=== PATIENT | male | born 1955 | race Caucasian/White ===

== ENCOUNTER → 2024-05-15 16:24 | Outpatient (CLI) | payer MEDICARE, OTHER, SELFPAY ==
[2024-05-17 14:21] LABS: PSA Free % 33.5 % (.); PSA, Total 6.2 ng/mL (0.0-4.0)
== END ==
PROVIDERS: PCP Family Medicine; Referring Provider Urology; Visit Provider Urology
DX: R97.20 Elevated prostate specific antigen [PSA] (principal); R39.89 Other symptoms and signs involving the genitourinary system
CPT/HCPCS: 36415; 84153; 84154

== ENCOUNTER 2024-05-16 15:05 | Emergency (ER) | payer MEDICARE, OTHER, SELFPAY ==
[2024-05-16] VITALS (9 sets, daily range): BP systolic 142–157; BP diastolic 66–78; PULSE 71–92; RESP 12–18; TEMP 35.9; O2SAT 96–98; BMI 27.9
--- NOTE | 2024-05-16 15:25 | EKG_ITS ---
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
--- NOTE | 2024-05-16 15:25 | DI.RAD.S_ITS ---
PROCEDURE: XR CHEST 1V INDICATIONS: chest pain TECHNIQUE: One view of the chest was acquired. COMPARISON: None. FINDINGS: Surgical changes and devices: None. Lungs and pleura: Lungs are clear. No pleural effusions or pneumothorax. Mediastinum: Mediastinal contours appear normal. Heart size is enlarged. Bones and chest wall: No suspicious bony lesions. Overlying soft tissues appear unremarkable. IMPRESSION: No acute pulmonary process. Dictated by: Liliya Ponce M.D. on 05/16/2024 at 16:09 Approved by: Liliya Ponce M.D. on 05/16/2024 at 16:09
[2024-05-16 16:24] LABS: Add Manual Diff / Slide Review NO; Basophils Absolute Auto 0 /uL (0-100); Basophils Percent Auto 0.2 % (0-2); Eosinophils Absolute Auto 100 /uL (0-450); Eosinophils Percent Auto 0.5 % (2-4); Hemoglobin 14.6 g/dL (13.5-17.5); Lymphocytes Absolute Auto 1700 /uL (1100-4500); Lymphocytes Percent Auto 15.7 % (25-40); Mean Corpuscular HGB Conc 33.2 % (30-36); Mean Corpuscular Hemoglobin 27.5 PG (26-34); Mean Corpuscular Volume 82.9 fL (80-100); Monocytes Absolute Auto 600 /uL (0-900); Monocytes Percent Auto 5.4 % (3-14); Neutrophils Absolute Auto 8200 /uL (1500-7000); Neutrophils Percent Auto 78.2 % (50-75); Platelet Count 299 X10^3/uL (150-400); Red Cell Distribution Width 12.5 % (11.6-14.8); White Blood Cell Count 10.5 X10^3/uL (4.5-11.0)
--- NOTE | 2024-05-16 16:25 | PC.NURSE ---
After prostate biopsy patient was being read instructions and passed out, patient doesnt remember the event had no symptoms prior. hx of HTN and DM2, checked blood glucose 130 at time of assessment. patient reports no pain, dizziness, had one episode of emesis in triage and patients reports feeling much better
[2024-05-16 16:31] LABS: INR 1.1 (0.9-1.3)
[2024-05-16 16:33] LABS: PTT Partial Thromboplastin Tim 37 SECONDS (25.1-36.5)
[2024-05-16 16:35] LABS: Alanine Aminotransferase 43 IU/L (<50); Albumin 4.9 g/dL (3.5-5.0); Albumin Globulin Ratio 1.6 (1.0-2.8); Alkaline Phosphatase 43 U/L (38-126); Aspartate Aminotransferase 41 IU/L (17-59); BUN Creatinine Ratio 17.1 (6-22); Bilirubin Total 0.9 mg/dL (0.2-1.3); Blood Urea Nitrogen 20 mg/dL (9-20); Calcium 9.8 mg/dL (8.4-10.2); Carbon Dioxide 26 mmol/L (22-32); Chloride 102 mmol/L (98-107); Creatine Kinase 203 U/L (55-170); Estimated Glomerular Filt Rate > 60 mL/min (>60); Globulin 3.1 g/dL (1.7-4.1); Glucose 134 mg/dL (80-110); HEMOLYSIS 16 (0-50); Lipase 75 U/L (23-300); Potassium 3.7 mmol/L (3.4-5.1); Sodium 140 mmol/L (137-145)
[2024-05-16 16:47] LABS: NT-proBNP (BNP-Adult 18+) < 20 pg/mL (<125); Troponin I < 0.012 ng/mL (0.01-0.034)
--- NOTE | 2024-05-16 18:08 | ED.DIZZY ---
HPI - Dizziness General Chief Complaint: Syncope Stated Complaint: passed out during procedure, sent by urology Time Seen by Provider: 05/16/24 17:23 Source: patient Mode of arrival: Family Vehicle History of Present Illness HPI Narrative: 69-year-old male presents for evaluation of syncopal episode that occurred shortly after prostate biopsy. Patient states that immediately after his procedure he went to sit up and felt very lightheaded and woozy. He states that the next thing he knows he was waking up with the doctor rubbing on his chest. His blood pressures were low in the procedure room and he was transferred to the ED for general evaluation. Shortly after arrival to the emergency department patient vomited a large amount of liquid. Patient states he currently feels back to baseline. He has a longstanding history of passing out after procedures. He states that he had a vagal episode after his colonoscopy 12 years ago. He states that sometimes he will get intermittent abdominal cramps that caused him to feel lightheaded and he has to lay down. While in the emergency department he did have several cups of fluid and ambulated to and from the bathroom. Related Data Home Medications Medication Instructions Recorded Confirmed ASPIRIN (Aspirin Low Dose) 81 mg PO QDAY ##0 06/04/08 05/16/24 cholecalciferol (vitamin D3) 50 50 mcg PO DAILY 04/13/24 05/16/24 mcg (2,000 unit) capsule coQ10 (ubiquinol) 100 mg capsule 100 mg PO BID 04/13/24 05/16/24 (Qunol Ayden CoQ10) metformin 500 mg tablet 500 mg PO DAILY 04/13/24 05/16/24 multivitamin (Daily Multi-Vitamin 1 tab PO DAILY 04/13/24 05/16/24 tablet) telmisartan 20 mg tablet (Micardis) 20 mg PO DAILY 04/13/24 05/16/24 Previous Rx's Medication Instructions Recorded levofloxacin 750 mg tablet 750 mg PO DAILY #3 tabs 04/13/24 Allergies Allergy/AdvReac Type Severity Reaction Status Date / Time No Known Drug Allergies Allergy Verified 05/16/24 15:23 Patient History Medical History High blood pressure Hypercholesteremia Diabetes Family History Mother Cancer Brother Blood disease Father Coronary artery disease Diabetes mellitus Hyperlipidemia Hypertension Social History marital status: number of children: 4 occupational status: previously employed Previous occupational history: retired clinical training specialist/professor leisure activities: exercise Smoking Status: Never smoker alcohol intake: never substance use type: does not use caffeine: Yes Type(s) of exercise: walking frequency: daily duration: 60-90 minutes/day Smoking Status: Never smoker alcohol intake frequency: 0-2 drinks per day Substance Use Type: does not use Exam Initial Vital Signs Initial Vital Signs: Vital Signs Temperature 96.6 F L 05/16/24 15:19 Pulse Rate 74 05/16/24 15:19 Respiratory Rate 18 05/16/24 15:19 Blood Pressure 142/73 H 05/16/24 15:19 Pulse Oximetry 96 05/16/24 15:19 Oxygen Delivery Method Room Air 05/16/24 15:19 Const: Awake, alert, no acute distress, nontoxic appearing Cardiac: regular rate, regular rhythm RESP: unlabored, speaking in complete sentences without dyspnea Skin: Warm, Dry, intact, no rashes Neuro: AO x3, CN II-XII grossly intact, moves all extremities Course Orders Ordered: Discontinued Medications Aspirin (Aspirin 81 Mg Chew Tab) 324 mg PO NOW ONE Stop: 05/16/24 15:26 Last Admin: 05/16/24 17:00 Dose: Not Given Documented By: LUIS Vital Signs Vital signs: Vital Signs - 8 hr 05/16/24 17:54 05/16/24 17:54 05/16/24 17:57 Pulse Rate 87 Pulse Rate [Orthostatic Sitting] 91 H Pulse Rate [Orthostatic Standing] 92 H Respiratory Rate 16 Blood Pressure 145/69 H Blood Pressure [Orthostatic Sitting] 145/67 H Blood Pressure [Orthostatic Standing] 145/70 H Pulse Oximetry 98 MDM - Dizziness Lab Data 05/16/24 16:09 05/16/24 16:09 Labs: Lab Results 05/16/24 Range/Units 16:09 WBC 10.5 (4.5-11.0) X10^3/uL RBC 5.30 (4.5-5.9) X10^6/uL Hgb 14.6 (13.5-17.5) g/dL Hct 44.0 (41-53) % MCV 82.9 (80-100) fL MCH 27.5 (26-34) PG MCHC 33.2 (30-36) % RDW 12.5 (11.6-14.8) % Plt Count 299 (150-400) X10^3/uL Neut % (Auto) 78.2 H (50-75) % Lymph % (Auto) 15.7 L (25-40) % Winn % (Auto) 5.4 (3-14) % Eos % (Auto) 0.5 L (2-4) % Baso % (Auto) 0.2 (0-2) % Neut # (Auto) 8200 H (6212-3484) /uL Lymph # (Auto) 1700 (3684-5215) /uL Winn # (Auto) 600 (0-900) /uL Eos # (Auto) 100 (0-450) /uL Baso # (Auto) 0 (0-100) /uL PT 13.0 H (9.4-12.5) SECONDS INR 1.1 (0.9-1.3) APTT 37 H (25.1-36.5) SECONDS Sodium 140 (137-145) mmol/L Potassium 3.7 (3.4-5.1) mmol/L Chloride 102 (98-107) mmol/L Carbon Dioxide 26 (22-32) mmol/L BUN 20 (9-20) mg/dL Creatinine 1.17 (0.66-1.25) mg/dL Estimated GFR > 60 (>60) mL/min BUN/Creatinine Ratio 17.1 (6-22) Glucose 134 H (80-110) mg/dL Calcium 9.8 (8.4-10.2) mg/dL Magnesium 2.0 (1.6-2.3) mg/dL Total Bilirubin 0.9 (0.2-1.3) mg/dL AST 41 (17-59) IU/L ALT 43 (<50) IU/L Alkaline Phosphatase 43 (38-126) U/L Total Creatine Kinase 203 H (55-170) U/L Troponin I < 0.012 (0.01-0.034) ng/mL NT-Pro-B Natriuret Pep < 20 (<125) pg/mL Total Protein 8.0 (6.3-8.2) g/dL Albumin 4.9 (3.5-5.0) g/dL Globulin 3.1 (1.7-4.1) g/dL Albumin/Globulin Ratio 1.6 (1.0-2.8) Lipase 75 (23-300) U/L ECG Data Interpretation: Normal sinus rhythm at 69 beats per minute. Normal GA. No ST T wave changes MDM Narrative Medical decision making narrative: Well-appearing patient with syncopal episode after prostate biopsy. Patient states that he has a longstanding history of vagal episodes after invasive procedures. He has since returned back to baseline and he feels like he was back to normal. He has had several cups of water to drink and has been able to ambulate to and from the restroom without any difficulty. He did have some blood in his urine, however he was told that this was normal after a prostate biopsy and should go away with hydration and time. Labs, EKG, other blood work unremarkable. Patient counseled to continue to hydrate at home. If any new or worsening symptoms recur he was encouraged to come back to the emergency department for repeat evaluation. Discharge Plan Departure Patient Disposition: Home Clinical Impression: Vasovagal syncope Instructions: DI for Syncope in Adults (Fainting) Activity Restrictions/Additional Instructions: Continue to push fluids at home. Follow up as scheduled with Dr. Carroll. If you have recurrent nausea, vomiting, or passing out episodes please feel free to return to the emergency department for repeat evaluation. Prescriptions: No Action ASPIRIN (Aspirin Low Dose) 81 mg PO QDAY Qty: 0 metformin 500 mg tablet 500 mg PO DAILY telmisartan [Micardis] 20 mg tablet 20 mg PO DAILY multivitamin [Daily Multi-Vitamin] Tablet 1 tab PO DAILY cholecalciferol (vitamin D3) 50 mcg (2,000 unit) capsule 50 mcg PO DAILY coQ10 (ubiquinol) [Qunol Ayden CoQ10] 100 mg capsule 100 mg PO BID levofloxacin 750 mg tablet 750 mg PO DAILY Qty: 3 0RF Rx Instructions: take one tab the morning before, the morning of and the morning after your procedure Referrals: Antonia Avila DO [Primary Care Provider] - Stand Alone Forms: Patient Portal/API/Survey
== END 2024-05-16 19:00 | disposition home or self-care (01) ==
PROVIDERS: Emergency Medicine; Emergency Provider Emergency Medicine; PCP Family Medicine
DX: R55 Syncope and collapse (principal); N40.1 Benign prostatic hyperplasia with lower urinary tract symptoms; R39.12 Poor urinary stream; R97.20 Elevated prostate specific antigen [PSA]
CPT/HCPCS: 55700; 71045; 76942; 80053; 82550; 83690; 83735; 83880; 84484; 85025; 85610; 85730; 93005; 93010; 99213; 99283; 99284

== ENCOUNTER → 2024-07-25 09:00 | Outpatient (CLI) | payer MEDICARE, OTHER, SELFPAY ==
--- NOTE | 2024-07-25 09:02 | DI.NM.S_ITS ---
PROCEDURE: NM BONE SCAN WHOLE BODY RADIOPHARMACEUTICAL: 22 mCi Tc-99m MDP IV. INDICATIONS: 69 y/o M w/ prostate cancer, eval for mets. TECHNIQUE: Delayed whole-body scintigrams were obtained approximately 3-4 hours after intravenous injection of radiotracer. Anterior and posterior views were acquired from vertex to feet. Additional left and right oblique views of the pelvis were obtained. COMPARISON: [facility], CT, CT CHEST ABD PEL W CON, 07/25/2024, 10:22. FINDINGS: No suspicious foci of uptake concerning for osseous metastatic disease. Scattered foci of uptake involving joints, likely representing osteoarthritic changes. There is involvement of the spine, bilateral shoulders, knees and feet. A more focal area of uptake within the cervical spine, likely involving a left facet joint. IMPRESSION: No definite findings concerning for osseous metastatic disease. Scattered degenerative changes including a more focal area of increased uptake within the left mid cervical spine, likely representing facet arthropathy. Consider dedicated cervical spine imaging or attention on follow-up. Dictated by: Tony Rosales M.D. on 07/25/2024 at 14:56 Approved by: Tony Rosales M.D. on 07/25/2024 at 15:01
--- NOTE | 2024-07-25 09:02 | DI.CT.S_ITS ---
PROCEDURE: CT CHEST ABD PEL W CON INDICATIONS: 69 y/o M w/ prostate cancer, eval for mets. TECHNIQUE: After the administration of intravenous contrast, 5 mm thick sections acquired from the lung apices to the symphysis. 5 mm coronal and sagittal reformats were performed, with additional 7 mm MIP reformats through the lungs. For radiation dose reduction, the following was used: automated exposure control, adjustment of mA and/or kV according to patient size. COMPARISON: None. FINDINGS: Image quality: Excellent. CHEST: Lower Neck: No enlarged lymph nodes. Thyroid: No thyroid nodules which require sonographic follow up, per consensus guidelines. Axillae: No enlarged lymph nodes. Chest Wall: Unremarkable. Lungs and Pleura: No pneumothorax or pleural effusions. Scattered atelectasis/scarring in posterior aspect of bilateral lower lobes are seen. No consolidation or suspicious nodules. Heart: Heart size is normal. No pericardial effusion. Thoracic Vessels: The aorta and pulmonary arteries demonstrate normal size. Mediastinum and Pam: No enlarged lymph nodes. Esophagus: No wall thickening. Small hiatal hernia. ABDOMEN: Liver: No solid mass. Gallbladder: Peripherally calcified stone is seen near neck of gallbladder. No gallbladder wall thickening or pericholecystic fluid. Biliary ducts: No biliary dilation. Pancreas: No ductal dilation. Spleen: Size is within normal limits. Adrenal Glands: No adrenal nodules. Kidneys and Ureters: No hydronephrosis. No solid mass. No complex renal cystic lesion which requires follow up. Stomach and Bowel: Normal colonic caliber, without significant wall thickening. Sigmoid diverticulosis without CT evidence of acute diverticulitis. No abscess collection. Peritoneum: No abnormal intraperitoneal fluid. No free air. Ventral Wall: No significant ventral hernia. Abdominal Nodes: No retroperitoneal or mesenteric adenopathy by size criteria. Vessels: Aorta and inferior vena cava are normal in size. PELVIS: Pelvic Organs: Markedly enlarged prostate gland with significant mass effect on floor of urinary bladder is seen. Bladder: There is diffuse bladder wall thickening, no discrete bladder wall mass or calcified bladder stones. Pelvic Nodes: No enlarged lymph nodes. Miscellaneous: No inguinal hernias are seen. Bones: No aggressive osseous abnormality. Small sclerotic foci are noted in bilateral humeral head and measures up to 7 mm in size in right humeral head series 2, image 5. Similar small sclerotic focus is also seen in posterior left femoral head series 2, image 185. Degenerative endplate changes are noted throughout lower thoracic and lumbar spine. Bilateral pars defect at L5 level is seen with 7 mm anterolisthesis of L5 on S1. IMPRESSION: 1. Markedly enlarged prostate gland with significant mass effect on floor of urinary bladder. 2. Diffuse bladder wall thickening, no definite bladder wall mass. 3. No evidence of metastatic disease is seen in chest, abdomen or pelvis. 4. Benign-appearing subcentimeter sclerotic foci are seen in bilateral humeral head and left femoral head likely represent benign bone islands. No aggressive appearing bony lesions. Degenerative changes in lumbar spine as above. Dictated by: Damien Dexter M.D. on 07/26/2024 at 9:46 Approved by: Damien Dexter M.D. on 07/26/2024 at 9:57
[2024-07-25 09:34] LABS: Estimated Glomerular Filt Rate > 60 mL/min (>60)
== END ==
PROVIDERS: Radiology Diagnostic Radiology; PCP Family Medicine; Referring Provider Urology; Visit Provider Urology
DX: C61 Malignant neoplasm of prostate (principal)
CPT/HCPCS: 36415; 71260; 74177; 78306; 82565; A9503; Q9967

== ENCOUNTER → 2025-03-21 12:39 | Outpatient (CLI) | payer MEDICARE, OTHER, SELFPAY ==
[2025-03-21 14:54] LABS: Prostate Specific Antigen 0.302 ng/mL (0.10-4.00)
== END ==
PROVIDERS: PCP Family Medicine; Referring Provider Urology; Visit Provider Urology
DX: C61 Malignant neoplasm of prostate (principal)
CPT/HCPCS: 36415; 84153